=== PATIENT | male | born 1950 | race Caucasian/White ===

== ENCOUNTER 2018-02-02 06:35 | Outpatient (CLI) | payer MEDICARE, OTHER ==
[~2018-02-02] VITALS: Ht 167.6 cm; Wt 96.2 kg
[2018-02-02] MEDS ORDERED: CETI10TA17 PO (13:51)
[2018-02-02] MEDS ORDERED: GUAI120016 PO (13:51)
[2018-02-02] MEDS ORDERED: ZOLP12.5 PO (13:51)
[2018-02-02] MEDS ORDERED: [UNRECOGNIZED DRUG - CODE] PO (13:51)
[2018-02-02] MEDS ORDERED: UBID200C36 PO (13:51)
[2018-02-02] MEDS ORDERED: LISI-552 PO (13:51)
[2018-02-02] MEDS ORDERED: [UNRECOGNIZED DRUG - CODE] PO (13:51)
[2018-02-02] MEDS ORDERED: THYROID PO (13:51)
[2018-02-02] MEDS ORDERED: DIVA125T32 PO (13:51)
[2018-02-02] MEDS ORDERED: MULT-35 PO (13:51)
[2018-02-02] MEDS ORDERED: RED600CA2 PO (13:51)
[2018-02-02] MEDS ORDERED: TEST75GE3 TD (13:51)
[2018-02-02] MEDS ORDERED: METF500T5 PO (13:51)
[2018-02-02] MEDS ORDERED: CHOL5000 PO (13:51)
[2018-02-02] MEDS ORDERED: OMEG10005 PO (13:51)
[2018-02-02] MEDS ORDERED: LORA10TA7 PO (13:51)
[2018-02-02 15:20] LABS: BASOPHILS % (AUTO) 0 % (0-10); EOSINOPHILS # (AUTO) 0.2 10^3/uL (0.0-0.3); EOSINOPHILS % (AUTO) 2 % (0-10); HEMATOCRIT 46 % (40-54); HEMOGLOBIN 16.5 G/DL (13.3-17.7); LYMPHOCYTES # (AUTO) 1.8 X 10^3 (1.0-4.0); LYMPHOCYTES % (AUTO) 19 % (12-44); MEAN CORPUSCULAR HEMOGLOBIN 32 PG (25-34); MEAN CORPUSCULAR HGB CONC 36 G/DL (32-36); MEAN CORPUSCULAR VOLUME 89 FL (80-99); MONOCYTES # (AUTO) 0.8 X 10^3 (0.0-1.0); MONOCYTES % (AUTO) 9 % (0-12); NEUTROPHILS # (AUTO) 6.5 X 10^3 (1.8-7.8); NEUTROPHILS % (AUTO) 70 % (42-75); PLATELET COUNT 204 10^3/uL (130-400); RED BLOOD COUNT 5.24 10^6/uL (4.35-5.85); RED CELL DISTRIBUTION WIDTH 12.4 % (10.0-14.5); WHITE BLOOD COUNT 9.3 10^3/uL (4.3-11.0)
[2018-02-02 15:39] LABS: BUN/CREATININE RATIO 21; CALCIUM 9.9 MG/DL (8.5-10.1); CARBON DIOXIDE 28 MMOL/L (21-32); CHLORIDE 103 MMOL/L (98-107); CREATININE SERUM 0.81 MG/DL (0.60-1.30); GFR ESTIMATED > 60; GLUCOSE 88 MG/DL (70-105); POTASSIUM 4.2 MMOL/L (3.6-5.0); SODIUM 139 MMOL/L (135-145)
== END 2018-02-02 16:05 | disposition home or self-care (01) ==
LOC: PREOP 06:35
PROVIDERS: ATTEND Otolaryngology Otolaryngology/Facial Plastic Surgery
DX: Z01.810 Encounter for preprocedural cardiovascular examination (principal); Z01.812 Encounter for preprocedural laboratory examination; Z11.2 Encounter for screening for other bacterial diseases; J34.2 Deviated nasal septum; J34.3 Hypertrophy of nasal turbinates
CPT/HCPCS: 36415; 80048; 85025; 87081; 93005

== ENCOUNTER 2018-02-05 06:00 | Day surgery (SDC) | payer MEDICARE, OTHER ==
[~2018-02-05] VITALS: Ht 167.6 cm; Wt 96.2 kg
[~2018-02-05 06:00] MED LIST: CETI10TA17 PO; CHOL5000 PO; DIVA125T32 PO; GUAI120016 PO; LISI-552 PO; LORA10TA7 PO; METF500T5 PO; MULT-35 PO; OMEG10005 PO; RED600CA2 PO; TEST75GE3 TD; THYROID PO; UBID200C36 PO; ZOLP12.5 PO; [UNRECOGNIZED DRUG - CODE] PO; [UNRECOGNIZED DRUG - CODE] PO
[2018-02-05 06:10] VITALS: BP 136/93
[2018-02-05] MEDS ORDERED: LACTATED RINGERS 1,000 ML IV PRN (06:13)
[2018-02-05] MEDS ORDERED: DEXAMETHASONE 10 MG/ML (DECADRON) 1 ML VIAL ONE (06:33)
[2018-02-05] MEDS ORDERED: LIDOCAINE PF 2% 5 ML (XYLOCAINE) VIAL ONE (06:33)
[2018-02-05] MEDS ORDERED: ONDANSETRON 4 MG/2 ML (SDV) Z0FRAN ONE (06:33)
[2018-02-05] MEDS ORDERED: ROCURONIUM 10 MG/ML 5 ML SYRINGE IV ONE (06:33)
[2018-02-05] MEDS ORDERED: PROPOFOL INJECTION 50 ML IV ONE (06:33)
[2018-02-05] MEDS ORDERED: fentaNYL INJECTION 100 MCG/2 ML AMP ONE (06:34)
[2018-02-05] MEDS ORDERED: MIDAZOLAM 2 MG/2 ML (VERSED) VIAL ONE (06:34)
[2018-02-05] MEDS ORDERED: SUCCINYLCHOLINE INJ 100 MG/5 ML SYR ONE (06:42)
--- NOTE | 2018-02-05 06:59 | Progress Note-Pre Operative ---
Pre-Operative Progress Note H&P Reviewed The H&P was reviewed, patient examined and no changes noted. Date Seen by Provider: Feb 05, 2018 Time Seen by Provider: : Date H&P Reviewed: Feb 05, 2018 Time H&P Reviewed: :30 Pre-Operative Diagnosis: Deviated Nasal Septum, Bilat HYper of Inf Turbs KATHY JAUREGUI MD Feb 05, 2018 6:59 am
[2018-02-05] MEDS ORDERED: BSS 15 ML ONE (07:09)
[2018-02-05] MEDS ORDERED: LIDOCAINE/EPI 1%-1:200,000 (XYLOCAINE) 10 ML VIAL ONE (07:09)
[2018-02-05] MEDS ORDERED: PHENYLEPHRINE 0.5% NASAL SPR (NEO-SYNEPHRINE) REG ONE ×2 (07:09→08:15)
[2018-02-05] MEDS ORDERED: COCAINE HCL 4% 2 ML SYR ONE (07:09)
[2018-02-05] MEDS ORDERED: NEOSTIGMINE 1 MG/ML 5 ML SYRINGE ONE (08:03)
[2018-02-05] MEDS ORDERED: GLYCOPYRROLATE 0.2 MG/ML (ROBINUL) 2 ML VIAL ONE (08:03)
[2018-02-05] MEDS ORDERED: PHENYLEPHRINE 100 MCG/ML 10 ML (ANESTHESIA) SYR ONE (08:09)
[2018-02-05] MEDS ORDERED: LIDOCAINE/EPI 1%-1:200,000 (XYLOCAINE) 10 ML VIAL INJ ONE (08:15)
[2018-02-05] MEDS ORDERED: COCAINE HCL 4% 2 ML SYR TOP ONE (08:15)
[2018-02-05] MEDS ORDERED: D5 1/2 NS W/KCL 20 MEQ/L 1,000 ML IV SCH (08:29)
--- NOTE | 2018-02-05 08:29 | Progress Note-Post Operative ---
Post-Operative Progess Note Surgeon (s)/Whip Operator (s) Surgeon KATHY JAUREGUI MD Whip Operator n/a Pre-Operative Diagnosis Deviated Nasal Septum, Bilat HYper of Inf Turbs Post-Operative Diagnosis same Post-Op Procedure Note Date of Procedure: Feb 05, 2018 Name of Procedure Performed: Nasal Septum, Bilat Red of Inf Turbs Description & Findings Description and Findings: n/a Anesthesia Type get Estimated Blood Loss minimal Packing none. Specimen(s) collected/removed nasal septum KATHY JAUREGUI MD Feb 05, 2018 8:29 am
[2018-02-05] MEDS ORDERED: HYDROcodone/APAP 5 MG/325 MG (LORTAB) TAB PO PRN (08:30)
[2018-02-05] MEDS ORDERED: PROMETHAZINE INJ 25 MG/ML (PHENERGAN) AMP IVP PRN (08:30)
[2018-02-05] MEDS ORDERED: ACETAMINOPHEN 325 MG TABLET PO PRN (08:30)
[2018-02-05] MEDS ORDERED: BSS 15 ML IR ONE (08:30)
[2018-02-05] MEDS ORDERED: HYDROmorphone 2 MG/ML VIAL (DILAUDID) IVP PRN (08:45)
[2018-02-05] MEDS ORDERED: MEPERIDINE (DEMEROL) INJ 50 MG/ML IVP PRN (08:45)
[2018-02-05] MEDS ORDERED: ONDANSETRON 4 MG/2 ML (SDV) Z0FRAN IVP PRN (08:45)
[2018-02-05] MEDS ORDERED: fentaNYL INJECTION 100 MCG/2 ML AMP IVP PRN (08:45)
[2018-02-05 09:20] VITALS: BP 136/89
[2018-02-05 09:21] VITALS: BP 136/89
--- NOTE | 2018-02-05 09:29 | Anesthesia-General Post-Op ---
General Patient Condition Mental Status/LOC: Same as Preop Cardiovascular: Satisfactory Nausea/Vomiting: Absent Respiratory: Satisfactory Pain: Controlled Complications: Absent Post Op Complications Complications None Follow Up Care/Instructions Patient Instructions None needed. Anesthesia/Patient Condition Patient Condition Patient is doing well, no complaints, stable vital signs, no apparent adverse anesthesia problems. No complications reported per nursing. D/C home per [facility] [place] Criteria: No SERA MAYA CRNA Feb 05, 2018 09:29
[2018-02-05] MEDS ORDERED: HYDR-3812 PO (09:30)
[2018-02-05] MEDS ORDERED: AMOX-355 PO (09:30)
[2018-02-05 09:50] VITALS: BP 131/78
[2018-02-05] MEDS ORDERED: SEVOFLURANE (ULTANE) 15 ML INHAL SOLN ONE (10:03)
[2018-02-05 10:20] VITALS: BP 145/91
== END 2018-02-05 10:25 | disposition home or self-care (01) ==
LOC: SDC 06:00
PROVIDERS: ATTEND Otolaryngology Otolaryngology/Facial Plastic Surgery
DX: J34.3 Hypertrophy of nasal turbinates (principal); R09.81 Nasal congestion; E11.9 Type 2 diabetes mellitus without complications; I10 Essential (primary) hypertension; G47.33 Obstructive sleep apnea (adult) (pediatric); Z79.84 Long term (current) use of oral hypoglycemic drugs; Z79.899 Other long term (current) drug therapy
CPT/HCPCS: 82962; 88300